=== PATIENT | female | born 1985 | race Caucasian/White ===

== ENCOUNTER 2023-07-15 20:41 | Emergency (ER) | payer BC ==
[~2023-07-15] VITALS: Ht 167.6 cm; Wt 74.8 kg
[2023-07-15] MEDS ORDERED: IV NORMAL SALINE 1000 ML BAG IV ONE (21:00)
[2023-07-15 21:11] LABS: HEMOGLOBIN 14.4 g/dL (10.9-14.3); MEAN CORPUSCULAR HGB CONC 35 g/dL (32.3-35.6)
[2023-07-15 21:15] LABS: BASOPHILS % (AUTO) 0.4 % (0.0-2.0); EOSINOPHILS % (AUTO) 0.5 % (0.0-7.0); HEMATOCRIT 41.4 % (31.2-41.9); LYMPHOCYTES # (AUTO) 2.6 K/uL (0.8-4.8); LYMPHOCYTES % (AUTO) 30.6 % (20.5-51.5); MEAN CORPUSCULAR HEMOGLOBIN 32.4 uug (24.7-32.8); MONOCYTES # (AUTO) 0.3 K/uL (0.1-1.30); NEUTROPHILS # (AUTO) 5.6 K/uL (1.8-8.9); NEUTROPHILS % (AUTO) 65.5 % (38.5-71.5); PLATELET COUNT (AUTO) 176 K/uL (179-408); RED BLOOD CELL COUNT(AUTO) 4.46 MIL/uL (3.63-4.92); RED CELL DISTRIBUTION WIDTH 12.4 % (12.3-17.7); WHITE BLOOD COUNT (AUTO) 8.6 K/uL (3.8-11.8)
[2023-07-15 21:16] LABS: CALCIUM 8.9 mg/dL (8.5-10.1); CARBON DIOXIDE 28 mmol/L (21-32); CHLORIDE 106 mmol/L (98-107); CREATININE 0.9 mg/dL (0.6-1.3); GLUCOSE 134 mg/dL (74-106); POTASSIUM 3.5 mmol/L (3.5-5.1); SODIUM SERUM 141 mmol/L (136-145); UREA NITROGEN, BLOOD 11 mg/dL (7-18)
[2023-07-15 21:23] LABS: DIFFERENTIAL COMMENT 1
[2023-07-15] MEDS ORDERED: IV NORMAL SALINE 250 ML IV ONE (22:16)
[2023-07-15] MEDS ORDERED: SWABABLE VALVE TRANSFER SET EA MC ONE (22:16)
[2023-07-15] MEDS ORDERED: IOHEXOL 350 100 ML INFUS..BTL ONE (22:17)
[2023-07-16 00:14] VITALS: BP 122/69; TEMP 98.3; O2SAT 98
== END 2023-07-16 00:42 | disposition home or self-care (01) ==
LOC: ER 20:44
DX: R07.89 Other chest pain (principal); R06.02 Shortness of breath; R00.0 Tachycardia, unspecified; R10.2 Pelvic and perineal pain
CPT/HCPCS: 99285; 96360; 71275; 71045; 80048; 85025; 85379; 84484 ×2; 84702; 36415; 93005; Q9967; J7040; A4606; A4663